=== PATIENT | male | born 1950 | race African-American/Black ===

== ENCOUNTER 2024-12-02 23:43 | Emergency (ER) | payer OTHER ==
[~2024-12-02] VITALS: Ht 182.9 cm; Wt 82.0 kg
[2024-12-02 23:45] VITALS: O2SAT 98
[2024-12-03 00:50] LABS: BASOPHILS % 0.7 % (0.0-2.0); EOSINOPHILS % 2.5 % (0.0-5.0); HEMATOCRIT. 35.2 % (42.0-52.0); HEMOGLOBIN. 11.6 g/dL (14.0-18.0); LYMPHOCYTES % 24.7 % (20.0-50.0); MEAN PLATELET VOLUME 7.1 fl (7.4-10.4); MONOCYTES % 7.7 % (2.0-8.0); NEUTROPHILS % 64.4 % (40.0-76.0); PLATELET 244 x1000/uL (130-400); RED BLOOD CELL COUNT 3.69 mill/uL (4.7-6.1); RED CELL DISTRIBUTION WIDTH 13.2 % (11.6-14.6)
[2024-12-03] MEDS: ALPRAZOLAM 0.5 MG TABLET PO ONE (01:00)
[2024-12-03 01:05] LABS: CREATININE 1.2 mg/dL (0.6-1.3); ETHANOL BLOOD < 10 mg/dL (<10); TROPONIN I HIGH SENSITIVITY < 4 ng/L (3.0-53); UREA NITROGEN BLOOD 14 mg/dL (9-23)
[2024-12-03 01:38] LABS: INR 1.0
[2024-12-03] MEDS: ONDANSETRON HCL 4MG/2ML INJ IV NR (02:07)
[2024-12-03] MEDS: KCL 20MEQ/100ML PREMIX 100 ML IV NR (02:07)
[2024-12-03 02:51] LABS: TROPONIN I HIGH SENSITIVITY 5 ng/L (3.0-53)
[2024-12-03 03:35] LABS: *AMPHETAMINES SCREEN URINE NEGATIVE (NEGATIVE); *BARBITURATES SCREEN URINE NEGATIVE (NEGATIVE); *BENZODIAZEPINES SCREEN URINE NEGATIVE (NEGATIVE); *COCAINE SCREEN URINE NEGATIVE (NEGATIVE); CANNABINOID URINE SCREEN NEGATIVE (NEGATIVE); METHADONE URINE SCREEN Pos (NEGATIVE); OPIATES URINE SCREEN PRESUMPTIVE POSITIVE (NEGATIVE); PHENCYCLIDINE URINE SCREEN NEGATIVE (NEGATIVE)
[2024-12-03 03:36] LABS: ECSTASY MDMA SCREEN URINE NEGATIVE (NEGATIVE)
[2024-12-03] MEDS: AMLODIPINE 5MG TABLET PO ONE (04:03)
[2024-12-03] MEDS: ACETAMINOPHEN 325MG TABLET PO ONE (06:16)
[2024-12-03 06:22] VITALS: BP 162/78; PULSE 88; RESP 18; TEMP 36.7; O2SAT 96
== END 2024-12-03 07:08 | disposition home or self-care (01) ==
LOC: ER 23:43 → CMPBEDREQ 12-05 22:25
DX: F41.9 Anxiety disorder, unspecified (principal); R00.2 Palpitations; I10 Essential (primary) hypertension; F11.90 Opioid use, unspecified, uncomplicated; R51.9 Headache, unspecified; Z79.899 Other long term (current) drug therapy
CPT/HCPCS: 36415 ×2; 71045; 93005; 99285; 80305; 80048; 80307; 80329; 80320; 85025; 85610; 85730; 84484; 70450; 96365; 96375; J2405; J3480; G0480